=== PATIENT | male | born 1985 | race Hispanic/Latino ===

== ENCOUNTER 2018-06-26 14:57 | Emergency (ER) | payer SELFPAY ==
[2018-06-26 15:16] VITALS: BP 135/86; PULSE 116; RESP 20; TEMP 98.3; O2SAT 97
--- NOTE | 2018-06-26 15:40 | C.PDOC ---
History Of Present Illness 32 year old male patient with hx of acid reflux presents to the ER with c/o back pain. Patient reports he was lifting box and felt a weird "tinge". The next day his back was in pain and he is unable to move. Patient took extra strength Motrin with no relief. Pain is localized. Patient denies frequency, incontinence, dysuria, or hematuria. Chief Complaint (Nursing): Back Pain History Per: Patient History/Exam Limitations: no limitations Onset/Duration Of Symptoms: Hrs Current Symptoms Are (Timing): Still Present Past Medical History Reviewed: Historical Data, Nursing Documentation, Vital Signs Vital Signs: Last Vital Signs Temp 98.3 F 06/26/18 15:13 Pulse 116 H 06/26/18 15:13 Resp 20 06/26/18 15:13 BP 135/86 06/26/18 15:13 Pulse Ox 97 06/26/18 18:13 Family History: States: No Known Family Hx - Social History Hx Alcohol Use: Yes Hx Substance Use: Yes - Immunization History Hx Tetanus Toxoid Vaccination: Yes Hx Influenza Vaccination: No Hx Pneumococcal Vaccination: No Review Of Systems Except As Marked, All Systems Reviewed And Found Negative. Genitourinary: Negative for: Dysuria, Frequency, Incontinence, Hematuria Musculoskeletal: Positive for: Back Pain Physical Exam - Physical Exam Appears: Non-toxic, No Acute Distress Skin: Normal Color, Warm, Dry Head: Atraumatic, Normacephalic Cardiovascular: Rhythm Regular Respiratory: Normal Breath Sounds Back: No CVA Tenderness, No Vertebral Tenderness, Decreased ROM, Paraspinal Tenderness (lowe back pain) Extremity: Normal ROM (x4) Neurological/Psych: Oriented x3, Normal Speech ED Course And Treatment O2 Sat by Pulse Oximetry: 97 (RA) Pulse Ox Interpretation: Normal - Other Rad Lumbar Spine X-Ray: Read By Radiologist Interpretation: Accession No. : [id number]. Patient Name / ID : NATHAN DUNN / [id number]. Exam Date : 06/26/2018 15:56:19 ( Approved ). Study Comment : Sex / Age : M / 32Y. Creator : Jorge Bailon MD. Dictator : Jorge Bailon MD. Top Stitcher : Student Affairs Dean : Jorge Bailon MD. Approver2 : Report Date : 06/26/2018 16:41:42. My Comment : . Date of service: 06/26/2018. PROCEDURE: Radiographs of the Lumbar Spine. HISTORY: ambulatory. COMPARISON: No prior. FINDINGS: BONES: Normal alignment. No listhesis. No fracture. DISC SPACES: Narrowing of the L5-S1 disc space with vacuum disc phenomenon and marginal osteophytes, consistent with degenerative disc disease. OTHER FINDINGS: None. IMPRESSION: Degenerative disc disease at L5-S1 Medical Decision Making Medical Decision Making: Impression: lumbar strain Plans: -- Toradol -- Valium -- XR LS Spine Reassess: Patient is resting comfortably. Tolerating PO. Patient is advised to f /u with PMD in 1-2 days. Disposition - Disposition [place]: [facility] [place] [facility] [Outside] [facility] [place] [Outside] Disposition: HOME/ ROUTINE Disposition Time: 16:53 Condition: IMPROVED Prescriptions: Cyclobenzaprine [Cyclobenzaprine HCl] 10 mg PO Q8 #15 tab Ibuprofen [Motrin] 600 mg PO Q6 #20 tab Instructions: Low Back Pain (DC) Forms: [facility] ([place]i) - Clinical Impression Clinical Impression: Lumbar sprain - Scribe Statement The provider has reviewed the documentation as recorded by the Kathryn Garcia Do Provider Attestation: All medical record entries made by the Danielibtabby were at my direction and personally dictated by me. I have reviewed the chart and agree that the record accurately reflects my personal performance of the history, physical exam, medical decision making, and the department course for this patient. I have also personally directed, reviewed, and agree with the discharge instructions and disposition.
--- NOTE | 2018-06-26 16:43 | RAD ---
Date of service: 06/26/2018 PROCEDURE: Radiographs of the Lumbar Spine. HISTORY: ambulatory COMPARISON: No prior. FINDINGS: BONES: Normal alignment. No listhesis. No fracture. DISC SPACES: Narrowing of the L5-S1 disc space with vacuum disc phenomenon and marginal osteophytes, consistent with degenerative disc disease. OTHER FINDINGS: None. IMPRESSION: Degenerative disc disease at L5-S1
== END 2018-06-26 16:54 | disposition home or self-care (01) ==
LOC: C.ER 14:57
DX: S33.5XXA Sprain of ligaments of lumbar spine, initial encounter (principal); X50.9XXA Other and unspecified overexertion or strenuous movements or postures, initial encounter
CPT/HCPCS: 72100; 96372; 99283; J1885